=== PATIENT | female | born 1930 | race Caucasian/White ===

== ENCOUNTER 2016-08-01 17:10 | Emergency (ER) | payer MEDICARE ==
[2016-08-01 17:20] VITALS: BP 132/59; PULSE 78; RESP 20; TEMP 97.4
--- NOTE | 2016-08-01 17:38 | ED ---
Skin/Abscess/FB HPI - General Chief complaint: Skin/Abscess/Foreign Body Stated complaint: Tick bite Time Seen by Provider: 08/01/16 17:22 Source: patient, RN notes reviewed Mode of arrival: wheelchair Limitations: no limitations - History of Present Illness Initial comments: 86-year-old female presents for tooth bite to the right neck. She states this happened last night. They tried to remove it this morning with no success. She states that she has not had it on for more than 12 hours. She denies any other symptoms at this time. She just would like to take. She denies any rash associated.Patient denies any recent fever, chills, shortness of breath, chest pain, back pain, abdominal pain, nausea vomiting, numbness or tingling, dysuria or hematuria, constipation or diarrhea, headaches or visual changes, or any other current symptoms. - Related Data Home Medications Medication Instructions Recorded Confirmed Atenolol [Atenolol] 12.5 mg PO DAILY 02/13/15 01/30/16 Levothyroxine Sodium 100 mcg PO DAILY 02/13/15 01/30/16 [Levothyroxine Sodium] Ibuprofen [Motrin] 200 - 400 mg PO Q6HR PRN 01/30/16 01/30/16 Levofloxacin [Levaquin] 500 mg PO DAILY 01/30/16 01/30/16 Mucus Relief 400mg 400 mg PO Q4H PRN 01/30/16 01/30/16 Previous Rx's Medication Instructions Recorded Albuterol Nebulized [Ventolin 2.5 mg INHALATION Q4H PRN 10 Days 01/30/16 Nebulized] predniSONE 20 mg PO DIRECTED #11 tab 01/30/16 Allergies Allergy/AdvReac Type Severity Reaction Status Date / Time sulfamethoxazole Allergy Unknown Verified 08/01/16 17:21 [From Bactrim] trimethoprim [From Bactrim] Allergy Unknown Verified 08/01/16 17:21 coconut oil AdvReac Nausea & Verified 08/01/16 17:21 Vomiting codeine AdvReac Nausea & Verified 08/01/16 17:21 Vomiting Review of Systems ROS Statement: Those systems with pertinent positive or pertinent negative responses have been documented in the HPI. ROS Other: All systems not noted in ROS Statement are negative. Past Medical History Past Medical History: COPD, Eye Disorder, GERD/Reflux, Hypertension, Osteoarthritis (OA), Thyroid Disorder Additional Past Medical History / Comment(s): DIFFICULTY SWALLOWING, STATES LOTS OF MUCOUS, CATARACTS History of Any Multi-Drug Resistant Organisms: None Reported Past Surgical History: Joint Replacement, Orthopedic Surgery Additional Past Surgical History / Comment(s): ORIF RT ANKLE, RT TOTAL HIP, HX OF VERTIGO. D & C Past Anesthesia/Blood Transfusion Reactions: No Reported Reaction Past Psychological History: No Psychological Hx Reported Smoking Status: Never smoker Past Alcohol Use History: None Reported Past Drug Use History: None Reported - Past Family History Mother Family Medical History: No Reported History Father Family Medical History: Cancer General Exam Limitations: no limitations General appearance: alert, in no apparent distress Head exam: Present: atraumatic, normocephalic, normal inspection Eye exam: Present: normal appearance, PERRL, EOMI. Absent: scleral icterus, conjunctival injection, periorbital swelling ENT exam: Present: normal exam, mucous membranes moist Neck exam: Present: full ROM. Absent: normal inspection, tenderness, meningismus, lymphadenopathy, thyromegaly Respiratory exam: Present: normal lung sounds bilaterally. Absent: respiratory distress, wheezes, rales, rhonchi, stridor Cardiovascular Exam: Present: regular rate, normal rhythm, normal heart sounds. Absent: systolic murmur, diastolic murmur, rubs, gallop, clicks Neurological exam: Present: alert, oriented X3 Psychiatric exam: Present: normal affect, normal mood Skin exam: Present: warm, dry, intact, normal color. Absent: rash Course Vital Signs 08/01/16 17:19 Temperature 97.4 F L Pulse Rate 78 Respiratory 20 Rate Blood Pressure 132/59 O2 Sat by Pulse 98 Oximetry Medical Decision Making - Medical Decision Making 86-year-old female presents for a tick bite to the right neck. This time there is no rash. We did discuss with the rash looks like and if she develops this to follow-up with her family care doctor return here immediately. We did discuss care of the site. We discussed signs of infection. We discussed return parameters WERE questions. She states she understood and she is agreeable to plan. She will be discharged home. Disposition Clinical Impression: Tick bite of neck Disposition: HOME SELF-CARE Condition: Stable Instructions: Tick Bite (ED) Additional Instructions: Please use medication as discussed. Please follow up with family doctor if symptoms have not improved over the next two days. Please return to the emergency room if your symptoms increase or worsen or for any other concerns. Referrals: Domenico Ernandez MD [Primary Care Provider] - 1-2 days Time of Disposition: 17:38
== END 2016-08-01 17:51 | disposition home or self-care (01) ==
LOC: EC 17:10
DX: S10.96XA Insect bite of unspecified part of neck, initial encounter (principal); E07.9 Disorder of thyroid, unspecified; I10 Essential (primary) hypertension; Z88.5 Allergy status to narcotic agent; Z88.2 Allergy status to sulfonamides; Z91.018 Allergy to other foods; Z79.899 Other long term (current) drug therapy
CPT/HCPCS: 99283

== ENCOUNTER 2016-12-07 16:44 | Emergency (ER) | payer MEDICARE ==
[2016-12-07 16:50] VITALS: BP 122/65; PULSE 77; RESP 16; TEMP 98.5
[2016-12-07] MEDS ORDERED: ONDANSETRON 4 MG ODT STARTER PACK 2 TAB BTL PO STA (17:15)
[2016-12-07] MEDS ORDERED: HYDROcodone/APAP 10-325MG 1 EACH TAB PO ONE (17:15)
--- NOTE | 2016-12-07 18:09 | ED ---
General Adult HPI - General Chief complaint: Extremity Problem,Nontraumatic Stated complaint: Left Hip Pain Time Seen by Provider: 12/07/16 16:53 Source: patient, RN notes reviewed, old records reviewed Mode of arrival: wheelchair Limitations: no limitations - History of Present Illness Initial comments: This is an 86-year-old female chief complaint of increased left hip pain for the past week. Patient was reports that she has a left leg that is 2 inches shorter than her right leg. She was supposed to get inserts by a stull installer early last week. Patient states it's worse or she does start movements. Patient denies any fever or chills, chest pain or shortness breath. Denies any nausea or vomiting. Patient reports that she had a right hip replacement by Dr. Ramirez. She reports that this was in 2004. She also reports that she's been having increased pain over the right side of her hip. She is able to bear weight on it. Patient denies any recent falls or trauma to cause worsening pain. - Related Data Home Medications Medication Instructions Recorded Confirmed Atenolol [Atenolol] 12.5 mg PO DAILY 02/13/15 12/07/16 Ibuprofen [Motrin] 200 - 400 mg PO Q6HR PRN 01/30/16 12/07/16 Aspirin [Children's Aspirin] 81 mg PO DAILY 12/07/16 12/07/16 Levothyroxine Sodium [Synthroid] 88 mcg PO DAILY 12/07/16 12/07/16 Previous Rx's Medication Instructions Recorded HYDROcodone/APAP 5-325MG [[place] 1 tab PO Q6HR PRN #20 tab 12/07/16 5-325] Ondansetron Odt [Zofran Odt] 4 mg PO Q8HR PRN #12 tab 12/07/16 Allergies Allergy/AdvReac Type Severity Reaction Status Date / Time sulfamethoxazole Allergy Unknown Verified 12/07/16 17:07 [From Bactrim] trimethoprim [From Bactrim] Allergy Unknown Verified 12/07/16 17:07 coconut oil AdvReac Nausea & Verified 12/07/16 17:07 Vomiting codeine AdvReac Nausea & Verified 12/07/16 17:07 Vomiting Review of Systems ROS Statement: Those systems with pertinent positive or pertinent negative responses have been documented in the HPI. ROS Other: All systems not noted in ROS Statement are negative. Past Medical History Past Medical History: COPD, Eye Disorder, GERD/Reflux, Hypertension, Osteoarthritis (OA), Thyroid Disorder Additional Past Medical History / Comment(s): DIFFICULTY SWALLOWING, STATES LOTS OF MUCOUS, CATARACTS History of Any Multi-Drug Resistant Organisms: None Reported Past Surgical History: Joint Replacement, Orthopedic Surgery Additional Past Surgical History / Comment(s): ORIF RT ANKLE, RT TOTAL HIP, HX OF VERTIGO. D & C Past Anesthesia/Blood Transfusion Reactions: No Reported Reaction Past Psychological History: No Psychological Hx Reported Smoking Status: Never smoker Past Alcohol Use History: None Reported Past Drug Use History: None Reported - Past Family History Mother Family Medical History: No Reported History Father Family Medical History: Cancer General Exam - General Exam Comments Initial Comments: A 6-year-old female. No distress. Limitations: no limitations General appearance: alert, in no apparent distress Head exam: Present: atraumatic, normocephalic, normal inspection Eye exam: Present: normal appearance, PERRL, EOMI. Absent: scleral icterus, conjunctival injection, periorbital swelling ENT exam: Present: normal exam, mucous membranes moist Neck exam: Present: normal inspection. Absent: tenderness, meningismus, lymphadenopathy Respiratory exam: Present: normal lung sounds bilaterally. Absent: respiratory distress, wheezes, rales, rhonchi, stridor Cardiovascular Exam: Present: regular rate, normal rhythm, normal heart sounds. Absent: systolic murmur, diastolic murmur, rubs, gallop, clicks GI/Abdominal exam: Present: soft, normal bowel sounds. Absent: distended, tenderness, guarding, rebound, rigid Left Hip exam: Present: normal inspection, tenderness, shortening (Patient has a left leg that is 2 inches shorter than her right leg. She reports that this is chronic. Denies any recent falls.), pelvic stability. Absent: swelling, abrasion, external rotation Upper Leg exam: Present: normal inspection, full ROM Knee exam: Present: normal inspection, full ROM Lower Leg exam: Present: normal inspection Ankle exam: Present: normal inspection Back exam: Present: normal inspection Neurological exam: Present: alert, oriented X3, CN II-XII intact Psychiatric exam: Present: normal affect, normal mood Skin exam: Present: warm, dry, intact, normal color. Absent: rash Course Vital Signs 12/07/16 16:47 Temperature 98.5 F Pulse Rate 77 Respiratory 16 Rate Blood Pressure 122/65 O2 Sat by Pulse 97 Oximetry Medical Decision Making - Medical Decision Making This is an 86-year-old female chief complaint of increased left hip pain for the past week. Patient was reports that she has a left leg that is 2 inches shorter than her right leg. She was supposed to get inserts by a stull installer early last week. Patient states it's worse or she does start movements. Patient has tenderness over left hip, and there is significant evidence of shortnenign. Patient had difficulty standing and transferring into the hospital bed, therefore underwent CT of hip and pelvis. There is no acute fracture, but evdience of severe arthritis, and chronic avscualr necrosis of femoral head. Patient was informed of this, adn that she needs to have a hip replacement. Patient was offered admission for pain control and orthopedic consult. Patient reports that she wants to go home, and will use a prescription for pain medication. Discussed she needs to follow up with orthopedic physician soon, and that she cannot delay treatment. Discussed risk of falling while on pain medication. Patient agrees to treatment plan and discussed close returh parameters. 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 No acute fracture seen. Atherosclerotic vascular disease. Disposition Clinical Impression: Avascular necrosis of bone of left hip, Arthritis of left hip Disposition: HOME SELF-CARE Condition: Good Instructions: Arthritis (ED) Additional Instructions: Patient needs to follow-up with orthopedic physician within the next few days. Take pain medication as prescribed. Ambulate with a walker or cane. Need to eventually have hip surgery. Return to the emergency department if any alarming signs or symptoms occur. Prescriptions: HYDROcodone/APAP 5-325MG [Oxford 5-325] 1 tab PO Q6HR PRN #20 tab PRN Reason: Pain Ondansetron Odt [Zofran Odt] 4 mg PO Q8HR PRN #12 tab PRN Reason: Nausea Referrals: Domenico Ernandez MD [Primary Care Provider] - 1-2 days Time of Disposition: 18:46
--- NOTE | 2016-12-07 18:18 | CT ---
EXAMINATION TYPE: CT pelvis wo con DATE OF EXAM: 12/07/2016 COMPARISON: NONE HISTORY: Left sided hip pain CT DLP: 762 mGycm Automated exposure control for dose reduction was used. FINDINGS: Multiple axial sections are obtained from the iliac crests to the mid femurs with no contrast. There is a right hip prosthesis that appears in anatomic position. Exam is limited by metal artifact. There is severe narrowing of the left hip joint space with sclerosis and subchondral cystic change o n both sides of the hip joint. There is some collapse of the articular surface of the left femoral he ad. The pelvic ring appears intact. Sacrum is intact. There is no evidence of a pelvic mass. There are nu merous diverticula in the sigmoid colon. There is evidence of bony spinal stenosis in the lower lumba r spine at the L4-5 level. IMPRESSION: ADVANCED OSTEOARTHRITIS IN THE LEFT HIP JOINT WITH FEATURES OF CHRONIC AVASCULAR NECROSIS IN THE LEFT FEMORAL HEAD. NO ACUTE FRACTURE SEEN. ATHEROSCLEROTIC VASCULAR DISEASE.
== END 2016-12-07 19:08 | disposition home or self-care (01) ==
LOC: EC 16:44
DX: M16.12 Unilateral primary osteoarthritis, left hip (principal); M87.852 Other osteonecrosis, left femur; I10 Essential (primary) hypertension; E07.9 Disorder of thyroid, unspecified; Z96.641 Presence of right artificial hip joint; Z98.890 Other specified postprocedural states; Z79.82 Long term (current) use of aspirin; Z79.899 Other long term (current) drug therapy; Z88.2 Allergy status to sulfonamides; Z88.5 Allergy status to narcotic agent; Z91.018 Allergy to other foods
CPT/HCPCS: 99284; 72192; S0119

== ENCOUNTER 2017-03-15 14:56 | Emergency (ER) | payer MEDICARE ==
[2017-03-15 15:08] VITALS: BP 117/57; PULSE 71; RESP 18; TEMP 98.5
[2017-03-15] MEDS ORDERED: NAPROXEN 250 MG TAB PO STA (16:42)
--- NOTE | 2017-03-15 17:06 | ED ---
Extremity Problem HPI - General Chief complaint: Extremity Problem,Nontraumatic Stated complaint: hip & ear pain Time Seen by Provider: 03/15/17 16:18 Source: patient Mode of arrival: wheelchair Limitations: no limitations - History of Present Illness Initial comments: patient is an 87-year-old female with a history of arthritis of the hip, scheduled for hip replacement who presents with a chief complaint of left ear pain, and left hip pain. Regarding her hip pain, the patient cannot identify any inciting incidences. There are no aggravating or alleviating factors. The patient is wheelchair-bound at home and states she is able to get around well with her wheelchair. Regarding the patient's ear pain, she states this started about a week ago. She states it feels a fullness in her ear. She denies any lightheadedness, chest pain, nausea or vomiting. - Related Data Home Medications Medication Instructions Recorded Confirmed Atenolol [Atenolol] 12.5 mg PO DAILY 02/13/15 03/15/17 Ibuprofen [Motrin] 200 - 400 mg PO Q6HR PRN 01/30/16 03/15/17 Aspirin [Children's Aspirin] 81 mg PO DAILY 12/07/16 03/15/17 Levothyroxine Sodium [Synthroid] 88 mcg PO DAILY 12/07/16 03/15/17 Previous Rx's Medication Instructions Recorded Amoxicillin/Potassium Clav 1 tab PO Q12HR 7 Days #14 tab 03/15/17 [Augmentin 875-125 Tablet] Naproxen [Naprosyn] 375 mg PO Q12HR #20 tablet 03/15/17 Allergies Allergy/AdvReac Type Severity Reaction Status Date / Time sulfamethoxazole Allergy Unknown Verified 03/15/17 15:44 [From Bactrim] trimethoprim [From Bactrim] Allergy Unknown Verified 03/15/17 15:44 coconut oil AdvReac Nausea & Verified 03/15/17 15:44 Vomiting codeine AdvReac Nausea & Verified 03/15/17 15:44 Vomiting Review of Systems ROS Statement: Those systems with pertinent positive or pertinent negative responses have been documented in the HPI. ROS Other: All systems not noted in ROS Statement are negative. Constitutional: Denies: fever, chills Eyes: Denies: vision change ENT: Reports: ear pain Respiratory: Denies: dyspnea Cardiovascular: Denies: chest pain Endocrine: Denies: fatigue Gastrointestinal: Denies: abdominal pain, nausea, vomiting Genitourinary: Denies: dysuria Musculoskeletal: Denies: back pain Neurological: Denies: headache Past Medical History Past Medical History: COPD, Eye Disorder, GERD/Reflux, Hypertension, Osteoarthritis (OA), Thyroid Disorder Additional Past Medical History / Comment(s): DIFFICULTY SWALLOWING, STATES LOTS OF MUCOUS, CATARACTS History of Any Multi-Drug Resistant Organisms: None Reported Past Surgical History: Joint Replacement, Orthopedic Surgery Additional Past Surgical History / Comment(s): ORIF RT ANKLE, RT TOTAL HIP, HX OF VERTIGO. D & C Past Anesthesia/Blood Transfusion Reactions: No Reported Reaction Past Psychological History: No Psychological Hx Reported Smoking Status: Never smoker Past Alcohol Use History: None Reported Past Drug Use History: None Reported - Past Family History Mother Family Medical History: No Reported History Father Family Medical History: Cancer General Exam Limitations: no limitations General appearance: alert, in no apparent distress Head exam: Present: atraumatic, normocephalic Eye exam: Present: normal appearance ENT exam: Present: normal oropharynx. Absent: TM's normal bilaterally ( examination of the left tympanic membrane shows an erythematous and bulging TM.) Neck exam: Present: lymphadenopathy (there is mild posterior auricular lymphadenopathy) Respiratory exam: Present: normal lung sounds bilaterally Cardiovascular Exam: Present: regular rate, normal rhythm GI/Abdominal exam: Present: soft. Absent: distended, tenderness Rectal exam: Present: deferred Extremities exam: Present: normal inspection Back exam: Present: normal inspection, paraspinal tenderness (patient has paraspinal tenderness in the lumbar region on the left side) Neurological exam: Present: alert, oriented X3. Absent: normal gait (patient normally has troubles gating, she uses a wheelchair at home) Psychiatric exam: Present: normal affect, normal mood Course Vital Signs 03/15/17 15:05 Temperature 98.5 F Pulse Rate 71 Respiratory 18 Rate Blood Pressure 117/57 O2 Sat by Pulse 96 Oximetry Medical Decision Making - Medical Decision Making patient presents with a chief complaint of hip pain and ear pain. The patient states the ear pain is what brought her to the emergency department today. The patient is scheduled to have a hip replacement in the near future. Examination of the left ear shows fluid and erythema consistent with otitis media. The patient denies any fevers, chills, chest pain, nausea, diarrhea, vomiting, diaphoresis. Patient will have an EKG given a dose of naproxen in the emergency department for hip pain. Ultimately patient will be started on Augmentin for otitis mediaEKG performed at 1719 shows normal sinus rhythm with a rate of 69 bpm. EKG is otherwise nonspecific. At this time, patient says she wants to go home and is stable for discharge. She was given explicit signs and symptoms that should prompt return visit to the emergency department. Disposition Clinical Impression: Otitis media, Hip pain Disposition: HOME SELF-CARE Condition: Good Instructions: Otitis Media (ED) Referrals: Domenico Ernandez MD [Primary Care Provider] - 1-2 days
== END 2017-03-15 17:48 | disposition home or self-care (01) ==
LOC: EC 14:56
DX: H66.92 Otitis media, unspecified, left ear (principal); M16.12 Unilateral primary osteoarthritis, left hip; I10 Essential (primary) hypertension; E07.9 Disorder of thyroid, unspecified; Z98.890 Other specified postprocedural states; Z88.2 Allergy status to sulfonamides; Z88.5 Allergy status to narcotic agent; Z91.018 Allergy to other foods; Z79.82 Long term (current) use of aspirin; Z79.899 Other long term (current) drug therapy
CPT/HCPCS: 93005; 99283

== ENCOUNTER 2017-07-03 07:22 | Emergency (ER) | payer MEDICARE ==
[2017-07-03 07:30] VITALS: RESP 20
[2017-07-03] MEDS ORDERED: IPRATROPIUM-ALBUTEROL 3 ML NEB INHALATION STA (07:38)
[2017-07-03] MEDS ORDERED: ACETAMINOPHEN TAB 325 MG TAB PO STA (07:38)
[2017-07-03] MEDS ORDERED: predniSONE 50 MG TAB PO STA (07:38)
--- NOTE | 2017-07-03 07:45 | ED ---
General Adult HPI - General Chief complaint: Upper Respiratory Infection Stated complaint: SOB Time Seen by Provider: 07/03/17 07:23 Source: patient, EMS, RN notes reviewed, old records reviewed Mode of arrival: EMS Limitations: no limitations - History of Present Illness Initial comments: 87-year-old presenting with URI symptoms cough. Patient states over the last 2- 3 days she has had rhinorrhea, mild sore throat, and persistent cough. Cough is nonproductive. She does have history of chronic bronchitis. She is a nonsmoker, no history of tobacco use. Denies fever or chills. Denies chest pain. Denies abdominal pain or nausea vomiting. Denies orthopnea or PND. No history of heart failure. Patient has past medical history of hypothyroidism and hypertension. - Related Data Home Medications Medication Instructions Recorded Confirmed Atenolol [Atenolol] 12.5 mg PO DAILY 02/13/15 03/15/17 Ibuprofen [Motrin] 200 - 400 mg PO Q6HR PRN 01/30/16 03/15/17 Aspirin [Children's Aspirin] 81 mg PO DAILY 12/07/16 03/15/17 Levothyroxine Sodium [Synthroid] 88 mcg PO DAILY 12/07/16 03/15/17 Previous Rx's Medication Instructions Recorded Amoxicillin/Potassium Clav 1 tab PO Q12HR 7 Days #14 tab 03/15/17 [Augmentin 875-125 Tablet] Naproxen [Naprosyn] 375 mg PO Q12HR #20 tablet 03/15/17 Azithromycin [Zithromax Z-pack] 0 mg PO DIRECTED #6 tab 07/03/17 methylPREDNISolone Dose Pack 4 mg PO DIRECTED #21 package 07/03/17 [Medrol Dose Pack] Allergies Allergy/AdvReac Type Severity Reaction Status Date / Time sulfamethoxazole Allergy Unknown Verified 07/03/17 07:30 [From Bactrim] trimethoprim [From Bactrim] Allergy Unknown Verified 07/03/17 07:30 coconut oil AdvReac Nausea & Verified 07/03/17 07:30 Vomiting codeine AdvReac Nausea & Verified 07/03/17 07:30 Vomiting Review of Systems ROS Statement: Those systems with pertinent positive or pertinent negative responses have been documented in the HPI. ROS Other: All systems not noted in ROS Statement are negative. Past Medical History Past Medical History: COPD, Eye Disorder, GERD/Reflux, Hypertension, Osteoarthritis (OA), Thyroid Disorder Additional Past Medical History / Comment(s): DIFFICULTY SWALLOWING, STATES LOTS OF MUCOUS, CATARACTS History of Any Multi-Drug Resistant Organisms: None Reported Past Surgical History: Joint Replacement, Orthopedic Surgery Additional Past Surgical History / Comment(s): ORIF RT ANKLE, RT TOTAL HIP, HX OF VERTIGO. D & C Past Anesthesia/Blood Transfusion Reactions: No Reported Reaction Past Psychological History: No Psychological Hx Reported Smoking Status: Never smoker Past Alcohol Use History: None Reported Past Drug Use History: None Reported - Past Family History Mother Family Medical History: No Reported History Father Family Medical History: Cancer General Exam Limitations: no limitations General appearance: alert, in no apparent distress Head exam: Present: atraumatic, normocephalic Eye exam: Present: normal appearance, PERRL ENT exam: Present: other (Rhinorrhea) Neck exam: Present: normal inspection. Absent: tenderness, meningismus Respiratory exam: Present: normal lung sounds bilaterally, other ( Bronchospastic cough). Absent: respiratory distress, wheezes, rhonchi Cardiovascular Exam: Present: regular rate, normal rhythm GI/Abdominal exam: Present: soft. Absent: distended, tenderness, guarding Extremities exam: Present: normal inspection, pedal edema (trace) Back exam: Present: normal inspection, full ROM Neurological exam: Present: alert, oriented X3, CN II-XII intact. Absent: motor sensory deficit Psychiatric exam: Present: normal affect, normal mood Skin exam: Present: warm, dry, intact. Absent: cyanosis, diaphoretic Course Vital Signs 07/03/17 07/03/17 07/03/17 07:24 07:31 07:49 Temperature 98.1 F Pulse Rate 99 88 Respiratory 20 Rate Blood Pressure 117/60 O2 Sat by Pulse 94 L Oximetry 07/03/17 08:14 Temperature Pulse Rate 88 Respiratory Rate Blood Pressure O2 Sat by Pulse Oximetry Medical Decision Making - Medical Decision Making 87-year-old female presenting with cough and URI symptoms. Patient's lungs are clear on exam, she does have bronchospastic cough. Vital signs are stable. Chest x-ray shows COPD mild cardiomegaly, no focal pneumonia. Normal white blood cell count 5.2, LITES within normal limits. Influenza is negative. Patient lives with her son. They will return with any worsening or changing symptoms. Patient's will be given a short course of steroids and azithromycin. She will follow-up with her primary care physician. - Lab Data Result diagrams: 07/03/17 07:30 07/03/17 07:30 Lab Results 07/03/17 07/03/17 07/03/17 Range/Units 07:30 07:30 07:30 WBC 5.2 (3.8-10.6) k/uL RBC 4.77 (3.80-5.40) m/uL Hgb 14.5 (11.4-16.0) gm/dL Hct 44.2 (34.0-46.0) % MCV 92.8 (80.0-100.0) fL MCH 30.4 (25.0-35.0) pg MCHC 32.7 (31.0-37.0) g/dL RDW 12.3 (11.5-15.5) % Plt Count 106 L (150-450) k/uL Neutrophils % 76 % Lymphocytes % 15 % Monocytes % 6 % Eosinophils % 2 % Basophils % 0 % Neutrophils # 3.9 (1.3-7.7) k/uL Lymphocytes # 0.8 L (1.0-4.8) k/uL Monocytes # 0.3 (0-1.0) k/uL Eosinophils # 0.1 (0-0.7) k/uL Basophils # 0.0 (0-0.2) k/uL Sodium 138 (137-145) mmol/L Potassium 4.4 (3.5-5.1) mmol/L Chloride 101 (98-107) mmol/L Carbon Dioxide 28 (22-30) mmol/L Anion Gap 9 mmol/L BUN 12 (7-17) mg/dL Creatinine 0.60 (0.52-1.04) mg/dL Est GFR (CKD-EPI)AfAm >90 (>60 ml/min/1.73 sqM) Est GFR (CKD-EPI)NonAf 82 (>60 ml/min/1.73 sqM) Glucose 103 H (74-99) mg/dL Calcium 9.1 (8.4-10.2) mg/dL Total Bilirubin 1.5 H (0.2-1.3) mg/dL AST 17 (14-36) U/L ALT 20 (9-52) U/L Alkaline Phosphatase 74 (38-126) U/L Total Protein 5.7 L (6.3-8.2) g/dL Albumin 3.5 (3.5-5.0) g/dL Influenza Type A RNA Not Detected (Not Detectd) Influenza Type B (PCR) Not Detected (Not Detectd) Disposition Clinical Impression: Bronchitis Disposition: HOME SELF-CARE Condition: Fair Instructions: Upper Respiratory Infection (ED), Chronic Bronchitis (ED) Prescriptions: Azithromycin [Zithromax Z-pack] 0 mg PO DIRECTED #6 tab methylPREDNISolone Dose Pack [Medrol Dose Pack] 4 mg PO DIRECTED #21 package Referrals: Domenico Ernandez MD [Primary Care Provider] - 1-2 days Time of Disposition: 08:45
[2017-07-03 07:55] LABS: Basophils % (A) 0 %; Eosinophils # (A) 0.1 k/uL (0-0.7); Eosinophils % (A) 2 %; HCT 44.2 % (34.0-46.0); HGB 14.5 gm/dL (11.4-16.0); Lymphocytes # (A) 0.8 k/uL (1.0-4.8); Lymphocytes % (A) 15 %; MCH 30.4 pg (25.0-35.0); MCHC 32.7 g/dL (31.0-37.0); MCV 92.8 fL (80.0-100.0); Mean Platelet Volume 7.7; Monocytes # (A) 0.3 k/uL (0-1.0); Monocytes % (A) 6 %; Neutrophils # (A) 3.9 k/uL (1.3-7.7); Neutrophils % (A) 76 %; Platelet Count 106 k/uL (150-450); RBC 4.77 m/uL (3.80-5.40); RDW 12.3 % (11.5-15.5); WBC 5.2 k/uL (3.8-10.6)
[2017-07-03 08:09] LABS: ALT 20 U/L (9-52); AST 17 U/L (14-36); Albumin 3.5 g/dL (3.5-5.0); Alkaline Phosphatase 74 U/L (38-126); Anion Gap 9 mmol/L; Blood Urea Nitrogen 12 mg/dL (7-17); Calcium 9.1 mg/dL (8.4-10.2); Carbon Dioxide 28 mmol/L (22-30); Chloride 101 mmol/L (98-107); Glucose 103 mg/dL (74-99); Potassium 4.4 mmol/L (3.5-5.1); Sodium 138 mmol/L (137-145); Total Bilirubin 1.5 mg/dL (0.2-1.3); Total Protein 5.7 g/dL (6.3-8.2)
--- NOTE | 2017-07-03 08:36 | XR ---
EXAMINATION TYPE: XR chest 2V DATE OF EXAM: 07/03/2017 HISTORY: cough. REFERENCE: Previous study dated 01/30/2016. FINDINGS: The lungs are overinflated. The heart is mildly enlarged. Increased opacity at the lung bas es believed to BE due to overlying soft tissues. The lungs appear clear. Pleural spaces are clear. IMPRESSION: 1. COPD. 2. MILD CARDIOMEGALY.
[2017-07-03 08:52] VITALS: BP 114/70; PULSE 104; TEMP 98.7
== END 2017-07-03 08:50 | disposition home or self-care (01) ==
LOC: EC 07:22
DX: J44.9 Chronic obstructive pulmonary disease, unspecified (principal); I51.7 Cardiomegaly; E03.9 Hypothyroidism, unspecified; I10 Essential (primary) hypertension; Z79.82 Long term (current) use of aspirin; Z79.899 Other long term (current) drug therapy; Z88.2 Allergy status to sulfonamides; Z88.5 Allergy status to narcotic agent; Z91.018 Allergy to other foods
CPT/HCPCS: 36415; 94640; 80053; 85025; 87502; 71046; 99285; J7512